=== PATIENT | male | born 2000 | race Caucasian/White ===

== ENCOUNTER 2023-10-08 10:24 | Emergency (ER) | payer OTHER ==
[2023-10-08 10:48] VITALS: PULSE 77
[2023-10-08 12:33] VITALS: BP 122/72
== END 2023-10-08 12:25 | disposition home or self-care (01) ==
LOC: JD.ED 10:24
DX: R07.89 Other chest pain (principal); M54.2 Cervicalgia; V89.2XXA Person injured in unspecified motor-vehicle accident, traffic, initial encounter
CPT/HCPCS: 71110; 71110-26; 72125; 72125-26; 99283; 99285